=== PATIENT | male | born 1965 | race Caucasian/White ===

== ENCOUNTER → 2021-02-10 | Outpatient (REF) ==
--- NOTE | 2021-02-11 08:32 | REPPI ---
INDICATION: KNEE PAIN, DISABILITY DIAGNOSIS DETERMINATION COMPARISON: None. TECHNIQUE: AP, lateral, bilateral oblique and sunrise views. FINDINGS: Moderate/early advanced arthritic changes include increased sclerosis, joint space narrowing, marginal osteophyte formation involving the tibiofemoral and patellofemoral joint spaces. No acute fracture or dislocation. No obvious effusion. IMPRESSION: Moderate/early advanced tricompartmental osteoarthritic degenerative changes.. <Electronically signed by Matt Benites > 02/11/21 [id number]
== END ==
LOC: M PLAIMG 09:40
PROVIDERS: ATTEND Internal Medicine
DX: Z02.71 Encounter for disability determination (principal)